=== PATIENT | female | born 1945 | race Caucasian/White ===

== ENCOUNTER → 2023-12-28 | Outpatient (CLI) | payer OTHER, SELFPAY ==
[2024-01-03 06:25] LABS: Fecal Globin Result NOT DETECTED (NOT DETECTED)
== END | disposition home or self-care (01) ==
LOC: SLDO 15:36
PROVIDERS: PCP Family Medicine; Referring Provider Family Medicine; Visit Provider Family Medicine
DX: Z12.11 Encounter for screening for malignant neoplasm of colon (principal)
CPT/HCPCS: 82274; G0328

== ENCOUNTER → 2024-03-28 | Outpatient (CLI) | payer OTHER, SELFPAY ==
--- NOTE | 2024-03-28 08:00 | XR_ITS ---
Examination: MRI cervical spine without intravenous contrast Date and time of exam: March 28, 2024 0938 hours INDICATIONS: Neck pain radiating to the right shoulder down the right arm numbness in the right hand 2 years, worse the last 7 months Technique: Multiple axial and sagittal sections of the cervical spine to been obtained. T2 weighted sagittal sections, TR 3, 270, TE 117 T1-weighted sagittal sections, TR 500, TE 11 T1-weighted axial sections, TR 607, TE 12, axial sections TR 18, TE 27 and T2 weighted transverse sections, TR 3920, TE 122. Findings: Straightening normal cervical lordosis No cervical fracture Intact odontoid Diffuse cervical disc desiccation Advanced disc narrowing C5-C6, C6-C7, C7-T1, T1-T2 Adequate marrow signal cervical vertebral bodies No localized enlargement cervical cord C2-C3 mild right neural foraminal stenosis C3-C4 uncinate process hypertrophy mild bilateral neural foraminal stenosis C4-C5 2 mm central subarticular osteophyte disc complex, advanced bilateral neural foraminal stenosis C5-C6 4 mm central subarticular osteophyte disc complex, indenting the ventral margin cervical cord, moderate right advanced left neural foraminal stenosis C6-C7 2 mm central subarticular osteophyte disc complex, moderate bilateral neural foraminal stenosis C7-T1 uncinate process hypertrophy moderate bilateral neural foraminal stenosis IMPRESSION: Advanced degenerative disc disease C5-C6, C6-C7 C4-C5 advanced bilateral neural foraminal stenosis C5-C6 4 mm central osteophyte disc complex, indenting the ventral margin cervical cord, moderate right advanced left neural foraminal stenosis C6-C7, C7-T1 moderate bilateral neural foraminal stenosis
== END | disposition home or self-care (01) ==
LOC: SMRI 07:49
PROVIDERS: PCP Family Medicine; Referring Provider Student in an Organized Health Care Education/Training Program; Visit Provider Student in an Organized Health Care Education/Training Program
DX: M50.322 Other cervical disc degeneration at C5-C6 level (principal); M48.02 Spinal stenosis, cervical region; M25.78 Osteophyte, vertebrae; M48.03 Spinal stenosis, cervicothoracic region
CPT/HCPCS: 72141

== ENCOUNTER → 2024-04-08 | Outpatient (CLI) | payer OTHER, SELFPAY ==
--- NOTE | 2024-04-08 | XR_ITS ---
Examination: Bilateral hands, 6 views. 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
--- NOTE | 2024-04-08 10:23 | XR_ITS ---
Examination: Foot bilateral, 6 views Technique: AP, oblique, lateral views each foot total 6 views Date and time of exam: April 08, 2024 1144 hours INDICATIONS: Bilateral foot pain several years. FINDINGS: Severe osteopenia Bilateral moderate osteoarthritis first metatarsophalangeal joints No fracture or dislocation involving either foot No erosive arthritis No opaque foreign bodies 6 mm left plantar bony calcaneal spur IMPRESSION: Bilateral moderate osteoarthritis first metatarsophalangeal joints 6 mm plantar left bony calcaneal spur
== END | disposition home or self-care (01) ==
PROVIDERS: PCP Family Medicine; Referring Provider Nurse Practitioner Family; Visit Provider Nurse Practitioner Family
DX: M19.072 Primary osteoarthritis, left ankle and foot (principal); M19.071 Primary osteoarthritis, right ankle and foot; M77.32 Calcaneal spur, left foot; M19.042 Primary osteoarthritis, left hand; M19.041 Primary osteoarthritis, right hand; M18.0 Bilateral primary osteoarthritis of first carpometacarpal joints
CPT/HCPCS: 73130; 73630

== ENCOUNTER → 2024-04-21 | Outpatient (CLI) | payer OTHER, SELFPAY ==
[2024-04-21 11:17] LABS: Misc Send Out* See Sep Rpt
[2024-04-21 11:51] LABS: Collection Type, Urine Clean Catch
[2024-04-21 12:40] LABS: Alanine Aminotransferase 14 U/L (10-49); Albumin, Serum 4.1 gm/dL (3.4-4.8); Albumin/Globulin Ratio 2.2 (1.2-2.2); Alkaline Phosphatase 101 U/L (46-116); Anion Gap 10 (7-16); Aspartate Amino Transferase 21 U/L (0-34); BUN/Creatinine Ratio 26 Ratio (12-20); Bilirubin,Total 0.5 mg/dL (0.3-1.2); Blood Urea Nitrogen 21 mg/dL (9-23); Calcium 9.6 mg/dL (8.3-10.6); Calcium (Corrected) 9.6 mg/dL (8.5-10.1); Carbon Dioxide 27.9 mMol/L (20.0-31.0); Chloride 103 mMol/L (98-107); Creatinine (Component) 0.8 mg/dL (0.6-1.3); Free T3 2.7 pg/mL (2.3-4.2); Free T4 (Free Thyroxine) 1.16 ng/dL (0.89-1.76); Globulin 1.9 gm/dL (2.3-3.5); Glucose 92 mg/dL (74-106); Osmolality,Calculated 284 (275-295); Potassium 3.5 mMol/L (3.4-5.1); Sodium 141 mMol/L (136-145); Thyroid Stimulating Hormone 4.18 uIU/mL (0.55-4.78); eGFR > 60 See Note
[2024-04-21 12:46] LABS: Bilirubin,Urine Negative (Negative); Blood,Urine 1+ (Negative); Clarity,Urine Clear (Clear/Hazy); Color,Urine Lt-Yellow (Lt Yel-Yel); Culture Indicated,Urine Not Indicated; Glucose, Urine Negative (Negative); Ketones,Urine Negative (Negative); Leukocyte Esterase,Urine Negative (Negative); Nitrite,Urine Negative (Negative); PH,Urine 6.5 (5.0-7.0); Protein,Urine Negative (Neg - Trace); RBC,Urine 1 /hpf (0-3); Specific Gravity,Urine 1.011 (1.001-1.035); Squamous Epithelial Cell,Urine < 1 /hpf (0-5); Urobilinogen,Urine Negative mg/dL (0.0-1.0); WBC,Urine < 1 /hpf (0-5)
[2024-04-21 13:46] LABS: RA Screen Negative (Negative)
[2024-04-21 14:13] LABS: Vitamin B12 306 pg/mL (211-911)
[2024-04-26 17:51] LABS: Sjogren's antibody (SS-A) <1.0 NEG AI (<1.0 NEGATIVE)
[2024-04-28 07:00] LABS: ANA Screen, IFA POSITIVE (NEGATIVE); Complement Component C4c* 25 mg/dL (15-57); HLA-B27 Antigen* NEGATIVE (NEGATIVE); Sjogren's Antibody (SS-B) <1.0 NEG AI (<1.0 NEGATIVE); Thyroid Peroxidase Antibodies* 41 IU/mL (<9); Vitamin D, 25-OH, D2 <4 ng/mL; Vitamin D, 25-OH, D3 36 ng/mL; Vitamin D, 25-OH, Total 36 ng/mL (30-100)
== END | disposition home or self-care (01) ==
LOC: COPL 10:44
PROVIDERS: PCP Family Medicine; Referring Provider Nurse Practitioner Family; Visit Provider Nurse Practitioner Family
DX: M19.90 Unspecified osteoarthritis, unspecified site (principal); R53.83 Other fatigue
CPT/HCPCS: 36415; 80053; 81001; 82306; 82607; 83520; 84439; 84443; 84481; 86038; 86039; 86160; 86200; 86235; 86376; 86430; 86812